=== PATIENT | male | born 1940 | race Caucasian/White ===

== ENCOUNTER 2024-11-19 09:26 | Emergency (ER) | payer MEDICARE, SELFPAY ==
--- OUTSIDE RECORDS SUMMARY | 2024-11-19 09:35 | XMS_ITS | Referral Summary ---
Author Organization [facility] [address] [facility] Address [address] [place] [address] Care Team Providers Care Potato Loader Name Role Phone Herbert Lin MD Primary Care Provider [phone] Encounters Date Type Department Care Team Description 11/09/2024 9:30 AM CDT Office Visit [facility] [address] [place] [address] Herbert Lin MD Type 2 diabetes mellitus with diabetic neuropathy, without long-term current use of insulin (HCC) (Primary Dx); Hypertension associated with diabetes (HCC); Type 2 diabetes mellitus with hyperlipidemia (HCC); Melanoma in situ of scalp (HCC); BMI 32.0-32.9,adult; Obesity (BMI 30.0-34.9); Encounter for Prevnar pneumococcal vaccination; Acute cough; Annual physical exam 11/04/2024 10:35 AM CDT Lab [facility] [address] [place] [address] Type 2 diabetes mellitus with diabetic neuropathy, without long-term current use of insulin (HCC) 10/12/2024 11:30 AM CDT Office Visit [facility] [address] [place] [address] Ave Ferrer NP Irritant contact dermatitis due to other agents (Primary Dx) from Last 3 Months Allergies No known active allergies Medications blood-glucose meter [facility] areac Use daily or as directed for monitoring of diabetes. Dx: E11.9 1 each 10/30/19 Active blood glucose diagnostic (glucose blood) strip Use to test blood sugar daily. Dx: E11.9 100 each 3 10/30/19 Active lancets misc Use to test blood sugar daily. Dx: E11.9 100 each 3 10/30/19 Active gabapentin (NEURONTIN) 300 mg capsule Take 1 capsule (300 mg total) by mouth nightly 90 capsule 3 05/13/20 Active metFORMIN (GLUCOPHAGE) 500 mg tablet TAKE 1 TABLET BY MOUTH TWICE A DAY WITH FOOD 180 tablet 1 05/16/20 24 Active atorvastatin (LIPITOR) 20 mg tablet TAKE 1 TABLET BY MOUTH EVERY DAY 90 tablet 4 08/09/19 25 Active triamcinolone (KENALOG) 0.5 % creamIndicatio ns:Irritant contact dermatitis due to other agents Apply topically 2 (two) times a day for 7 days 30 g 10/13/19 25 Active Additional Information Patient not taking.Reported on 11/09/2024 losartan (COZAAR) 100 mg tablet TAKE 1 TABLET BY MOUTH EVERY DAY 90 tablet 3 11/04/19 Active glipiZIDE (GLUCOTROL) 5 mg tabletIndicati ons:type 2 diabetes mellitus TAKE 1 TABLET (5 MG TOTAL) BY MOUTH 2 (TWO) TIMES A DAY BEFORE BREAKFAST AND LUNCH 180 tablet 1 11/04/19 25 Active amoxicillin-cl avulanate (AUGMENTIN) 875-125 mg per tablet Take 1 tablet by mouth 2 (two) times a day for 10 days 20 tablet 11/10/19 25 025 Active losartan (COZAAR) 100 mg tablet TAKE 1 TABLET BY MOUTH EVERY DAY 90 tablet 3 11/03/19 24 025 Discontinued glipiZIDE (GLUCOTROL) 5 mg tabletIndicati ons:type 2 diabetes mellitus TAKE 1 TABLET (5 MG TOTAL) BY MOUTH 2 (TWO) TIMES A DAY BEFORE BREAKFAST AND LUNCH 180 tablet 1 05/03/20 24 025 Discontinued varicella-zost er (SHINGRIX) 50 mcg/0.5 mL vaccine Inject 0.5 mL into the muscle as instructed once for 1 dose 0.5 mL 11/10/19 25 025 Active Problems Problem Noted Date Diagnosed Date BMI 32.0-32.9,adult 11/09/2024 Assessment & Plan (11/09/2024 10:16 AM CDT): Encourage 150min/week aerobic exercise. Healthy food choices. Acute cough 11/09/2024 Assessment & Plan (11/09/2024 10:16 AM CDT): Given duration of cough and increased rhonichi will treat empriically with augmentin given duration and will follow response. Encounter for Prevnar pneumococcal vaccination 0 11/09/2024 Assessment & Plan (11/09/2024 10:17 AM CDT): Updated pneumonia vaccination. Ordered shingrix and will follow response. Update zoster vaccination. Has had one episode in the past. No postherpetic neuralgias. Annual physical exam 11/09/2024 Assessment & Plan (11/09/2024 10:18 AM CDT): Focus of exam is preventative in nature. Reviewed immunizations, reviewed sun/skin cancer screening. Reviewed age and comorbid appropriate screenign recommendations and will follow response. Reivweed helathy food hcoices an dill montio rrepsonse. Update pneumonia and shingles vaccinations. BMI 33.0-33.9,adult 05/13/2024 Assessment & Plan (05/13/2024 8:14 AM CLINICAL LAB SCIENTIST): Encourage 150min/week aerobic exercise. Heatlhy food chocies and will monitor response. Obesity (BMI 30.0-34.9) 05/13/2024 Assessment & Plan (11/09/2024 10:15 AM CDT): Encourage healthy food choices and target 150min/week aerobic exercise. Will monitor response. Assessment & Plan (05/13/2024 8:14 AM CLINICAL LAB SCIENTIST): As above. Hypertension associated with diabetes 05/13/2024 Assessment & Plan (11/09/2024 10:16 AM CDT): Stable on losartan and continue on target blood pressure. Continue with renal protection related to use of ARB. Assessment & Plan (05/13/2024 8:14 AM CLINICAL LAB SCIENTIST): Stable on losartan 100mg daily. WIll follow response. Type 2 diabetes mellitus with hyperlipidemia Assessment & Plan (11/09/2024 10:16 AM CDT): Continues on atorvastatin and will follow response. No new myalgias/arthalgais and will continue to montior response. Assessment & Plan (05/13/2024 8:15 AM CLINICAL LAB SCIENTIST): Continue on atorvasetatin and will follow response. No new myalgias/arthalgais. Diabetic neuropathy, type II diabetes mellitus 0 11/06/2023 Assessment & Plan (11/09/2024 10:15 AM CDT): Continues on gabapentin to good effect. No new neuorpathy or intensifying of sypmtoms and will follow response. Assessment & Plan (05/13/2024 8:13 AM CLINICAL LAB SCIENTIST): Continues on gabapentin. WIll continue on 300mg nightly. Will resume after being off for an extended period of time. Upper respiratory tract infection 10/16/2022 Assessment & Plan (10/16/2022 1:59 PM CDT): Patient with symptoms for the past 3 days. Prescribed prednisone taper and instructed to use albuterol inhaler 2 puffs every 4-6 hours for the next few days. Patient will notify office in the next 2-3 days if symptoms have not improved or if he is experiencing any worsening symptoms. Will plan for chest x-ray. Encouraged him to rest, avoid mowing lawns while ill. Despite negative COVID testing patient is still stay home while sick. Stressed the need to drink plenty of fluids. Reviewed signs and symptoms warranting immediate evaluation. Melanoma in situ of scalp 10/06/2019 Assessment & Plan (11/09/2024 10:14 AM CDT): No new skin lesions. If any new lesions will need new derm referral as would be seekign second opinion. Assessment & Plan (05/13/2024 8:14 AM CLINICAL LAB SCIENTIST): Continue f/u with dermatology and will monitor response. No new skin lesions. Melanocytic nevus of skin 05/16/2016 Overview (08/22/2016): Encounter for surveillance of abnormal nevi Seborrheic keratosis 05/16/2016 Overview (08/22/2016): Seborrheic keratosis Tobacco use 05/16/2016 Overview (08/22/2016): Tobacco use Neuropathy 01/26/2015 Overview (08/22/2016): Neuropathy Hyperlipidemia 10/01/2013 Overview (08/21/2016): HYPERLIPIDEMIA NEC/NOS Hypertension 10/01/2013 Overview (08/21/2016): HYPERTENSION NOS Resolved Problems Problem Noted Date Diagnosed Date Resolved Date Severe obesity (BMI 35.0-39. 9) with comorbidity 10/01/2013 05/13/2024 Overview (08/21/2016): Obesity Immunizations Immunization Administration Dates Next Due Influenza, Trivalent, Preser vative Free, Intramuscular 03/18/2014 Influenza, Unspecified 05/05/2023(Deferr ed: Patient Refused),08/12/2022(Deferred: Patient Refused),05/18/2022(Deferred: Patient Refused),05/18/2021(Deferred: Patient Refused),05/18/2021(Deferred: Patient Refused),02/15/2019(Deferred: Patient Refused),02/23/2018(Deferred: Patient Refused),02/15/2018(Deferred: Patient Refused),05/19/2016(Deferred: Patient Refused) Pneumococcal Conjugate PCV 13 05/19/2018(Deferre d: Patient Refused) Pneumococcal Conjugate Pcv20 11/09/2024 Pneumococcal Polysaccharide PPV23 05/19/2018(Def erred: Patient Refused) Social History Tobacco Use Types Packs/Day Years Used Date Smoking Tobacco: Former Cigarettes Q uit: 2014 Smokeless Tobacco: Never Tobacco Cessation:Counseling Given: Not Answered Comments:Smoking History Packs/day: 2 Cigars Alcohol Use Standard Drinks/Week Comments Yes 0 (1 standard drink = 0.6 oz pur e alcohol) PHQ-2 Answer Date Recorded PHQ-2 Total Score (If total score is 3 or more points, staff should administer the PHQ-9) 0 11/09/2024 Sex and Gender Information Value Date Recorded Sex Assigned at Not on file Legal Sex Male 10:42 AM CLINICAL LAB SCIENTIST Gender Identity Not on file Sexual Orientation Not on file Last Filed Vital Signs Vital Sign Reading Time Taken Comments Blood Pressure 124/82 11/09/2024 9:27 AM CDT Pulse 85 11/09/2024 9:27 AM CDT Temperature 36.7 C (98.1 F) 11/09/2024 9:27 AM CDT Respiratory Rate 18 11/09/2024 9:27 AM CDT Oxygen Saturation 95% 11/09/2024 9:27 AM CDT room air Inhaled Oxygen Concentration - - Weight 113.4 kg (250 lb) 11/09/2024 9:27 AM CDT Height 185.4 cm (6' 1) 11/09/2024 9:27 AM CDT Body Mass Index 32.98 11/09/2024 9:27 AM CDT Plan of Treatment Not on file Procedures Procedure Name Priority Date/Time Associated Diagnosis Comments EGFR Routine 11/04/2024 10:33 AM CDT Type 2 diabetes mellitus with diabetic neuropathy, without long-term current use of insulin (HCC) DIFFERENTIAL AUTO Routine 11/04/2024 10: 33 AM CDT Type 2 diabetes mellitus with diabetic neuropathy, without long-term current use of insulin (HCC) LIPID PANEL Routine 11/04/2024 10:33 AM CDT Type 2 diabetes mellitus with diabetic neuropathy, without long-term current use of insulin (HCC) HEMOGLOBIN A1C Routine 11/04/2024 10:33 AM CDT Type 2 diabetes mellitus with diabetic neuropathy, without long-term current use of insulin (HCC) COMPREHENSIVE METABOLIC PANEL Routine 11/04/2024 10:33 AM CDT Type 2 diabetes mellitus with diabetic neuropathy, without long-term current use of insulin (HCC) CBC WITH AUTO DIFFERENTIAL Routine 11/04/2024 10:33 AM CDT Type 2 diabetes mellitus with diabetic neuropathy, without long-term current use of insulin (HCC) ALBUMIN CREATININE RATIO, URINE Routine 05/10/2024 8:22 AM CLINICAL LAB SCIENTIST Controlled type 2 diabetes mellitus without complication, without long-term current use of insulin (HCC) from Last 3 Months or Most Recently Relevant to Health Maintenance Results * eGFR (11/04/2024 10:33 AM CDT) eGFR 85 >=60 mL/min/1. 73 m2 Comment: Interpretive Data Reference Interval Normal >/= 90 mL/min/1.73m2 Mildly decreased* 60 - 89 mL/min/1.73m2 Mildly to moderately decreased 45 - 59 mL/min/1.73m2 Moderately to severely decreased 30 - 44 mL/min/1.73m2 Severely decreased 15 - 29 mL/min/1.73m2 Kidney Failure < 15 mL/min/1.73m2 *Relative to young adult level Estimated glomerular filtration rate is determined by the 2020 CKD-EPI equation recommended by the National Kidney Foundation (A Unifying Approach to GFR Estimation: Recommendations of the NKF-ASK Task Force on Reassessing the Inclusion of Race in Diagnosing Kidney Disease, JASN 2020). The CKD-EPI equation should not be used for patients with unstable renal function and has not been validated in children and those over 70. Current interpretive data was last reviewed 2021. Testing performed by: [facility], [address] [place] [address], [place]., [address] Blood 11/04/2024 10:3 3 AM CDT 11/04/2024 6:01 PM CDT us Herbetr Lin MD LAB BLOOD ORDERABLES Kelly fajardo Result [facility]) 1 [facility] [place] [address] * Differential, auto (11/04/2024 10:33 AM CDT) Neutrophil abs 4.01 1.50 - 6.50 K/cumm Comment:Testing performed by : [facility], [address] [place] [address]., [address] Imm gran abs 0.01 0.00 - 0.10 K/cumm [facility] Comment:Testing performed by : [facility], [address] [place] [address]., [address] Lymphocyte abs 1.33 0.80 - 3.30 K/cumm [facility] Comment:Testing performed by : [address], [address] Monocyte abs 0.43 0.20 - 0.80 K/cumm [facility]) Comment:Testing performed by : [address], [address] Eosinophil abs 0.21 0.00 - 0.50 K/cumm [facility]) Comment:Testing performed by : [facility], [address] [place] [address]., [address] Basophil abs 0.03 0.00 - 0.10 K/cumm [facility] Comment:Testing performed by : [address], [address] Neutrophil pct 66.6 % [facility] Comment: Interpretive Data Percent cell count reference ranges are not reported, since discordance with absolute values may lead to misinterpretation of CBC data. Current Interpretive Data was last revised on 2017. Testing performed by: [address] [address] Imm gran pct 0.2 % [facility] Comment: Interpretive Data Percent cell count reference ranges are not reported, since discordance with absolute values may lead to misinterpretation of CBC data. Current Interpretive Data was last revised on 2017. Testing performed by: [address], [address] Lymphocyte pct 22.1 % [facility] Comment: Interpretive Data Percent cell count reference ranges are not reported, since discordance with absolute values may lead to misinterpretation of CBC data. Current Interpretive Data was last revised on 2017. Testing performed by: [address] [address] Monocyte pct 7.1 % [facility] ([place]) Comment: Interpretive Data Percent cell count reference ranges are not reported, since discordance with absolute values may lead to misinterpretation of CBC data. Current Interpretive Data was last revised on 2017. Testing performed by: [facility], [address] [place] [address], [address] Eosinophil pct 3.5 % NILS R FAUSTINA ([place]) Comment: Interpretive Data Percent cell count reference ranges are not reported, since discordance with absolute values may lead to misinterpretation of CBC data. Current Interpretive Data was last revised on 2017. Testing performed by: [address], [address] Basophil pct 0.5 % [facility]) Comment: Interpretive Data Percent cell count reference ranges are not reported, since discordance with absolute values may lead to misinterpretation of CBC data. Current Interpretive Data was last revised on 2017. Testing performed by: [address], [address] Blood 11/04/2024 10:3 3 AM CDT 11/04/2024 5:52 PM CDT us Herbert Lin MD LAB BLOOD ORDERABLES Kelly l Result [facility] 1 [facility] [place] [address] * (ABNORMAL) CBC with auto differential (11/04/2024 10:33 AM CDT) WBC 6.02 3.80 - 9.90 K/cumm Comment:Testing performed by : [address], [address] Hgb 13.6 13.0 - 17.5 g/dL [facility] ([place]) Comment:Testing performed by : [address], [address] Hct 42.6 38.9 - 50.3 % [facility] Comment:Testing performed by : [address], [address] Plt 200 150 - 400 K/cumm [facility] ([place]) Comment:Testing performed by : [address], [address] MPV 10.4 9.1 - 12.3 fL [facility] ([place]) Comment:Testing performed by : [address], [address] RBC 4.75 4.30 - 5.80 M/cumm [facility] ([place]) Comment:Testing performed by : [address], [address] MCV 89.7 81.3 - 96.4 fL [facility] ([place]) Comment:Testing performed by : [address], [address] MCH 28.6 27.1 - 33.3 pg [facility]) Comment:Testing performed by : [address], [address] MCHC 31.9(L) 32.3 - 35.7 g/dL [facility] ([place]) Comment:Testing performed by : [address], [address] RDW CV 13.0 11.1 - 14.9 % [facility]) Comment:Testing performed by : [address], [address] RDW SD 43.0 35.7 - 48.1 fL [facility] ([place]) Comment:Testing performed by : [address], [address] NRBC abs 0.00 0.00 - 0.01 K/cumm [facility] ([place]) Comment:Testing performed by : [address], [address] Blood 11/04/2024 10:3 3 AM CDT 11/04/2024 5:52 PM CDT Herbert Lin MD LAB BLOOD ORDERABLES Kelly l Result [facility] [place]) 1 [place] [address] * (ABNORMAL) Hemoglobin A1c (11/04/2024 10:33 AM CDT) Hgb A1C 7.3(H) 4.0 - 5.6 % Comment:Testing performed by : [address] [address] Estimated Average Glucose 163 mg/dL [facility]) Comment: The ADA recommends reporting an estimated Average Glucose (eAG) with all Hemoglobin A1c results using the equation derived from a study of 507 normal and diabetic adults. Minority populations were underrepresented and children were not included. (Diabetes Care 31:8716-8063, 2008). The eAG is not equivalent to a fasting glucose. Testing performed by: [facility], [address] [place] [address]., [address] Blood 11/04/2024 10:3 3 AM CDT 11/04/2024 5:52 PM CDT Herbert Lin MD LAB BLOOD ORDERABLES Kelly l Result Performing Organization Address [facility] Co de Phone Number [facility] ([place]) 1 [facility] [place] [address] * (ABNORMAL) Lipid panel (11/04/2024 10:33 AM CDT) Cholesterol 128 30 - 199 mg/dL Comment: Interpretive Data Ages < or = 19 years Acceptable: <170 mg/dL Borderline high: 170-199 mg/dL High: >or= 200 mg/dL Ages > or = 20 years Desirable: <200 mg/dL Borderline high: 200-239 mg/dL High: >or= 240 mg/dL Literature References: 1. Expert Panel on Integrated Guidelines for Cardiovascular Health and Risk Reduction in Children and Adolescents. Pediatrics 2011;128:S213 2. NCEP Expert Panel. Circulation 2004;110:227 Current Interpretive Data was last revised on 2018. Testing performed by: [facility], [address] [place] [address]., [address] Triglycerides 102 <=149 mg/dL [facility] ([place]) Comment: Interpretive Data Ages < or = 9 years Acceptable: <75 mg/dL Borderline high: 75-99 mg/dL High: >or= 100 mg/dL Ages 10 to 20 years Acceptable: <90 mg/dL Borderline high: 90-129 mg/dL High: >or= 130 mg/dL Ages > or = 20 years Desirable: <150 mg/dL Borderline high: 150-199 mg/dL High: 200-499 mg/dL Very high: >or= 499 mg/dL Literature References: 1. Expert Panel on Integrated Guidelines for Cardiovascular Health and Risk Reduction in Children and Adolescents. Pediatrics 2011;128:S213 2. NCEP Expert Panel. Circulation 2004;110:227 Current Interpretive Data was last revised on 2018. Testing performed by: [facility], [address] [place] [address]., [address] HDL 36(L) >=40 mg/dL J[facility]UÉ Valentin ([place]) Comment: Interpretive Data Ages < or = 19 years Acceptable: >45 mg/dL Borderline low: 40-45 mg/dL Low: <40 mg/dL Ages > or = 20 years Desirable: >or= 60 mg/dL Low: <40 mg/dL Literature References: 1. Expert Panel on Integrated Guidelines for Cardiovascular Health and Risk Reduction in Children and Adolescents. Pediatrics 2011;128:S213 2. NCEP Expert Panel. Circulation 2004;110:227 Current Interpretive Data was last revised on 2018. Testing performed by: [facility], [address] [place] [address]., [address] LDL, calculated 73 <=129 mg/dL [facility] ([place]) Comment: Interpretive Data Ages < or = 19 years Acceptable: <110 mg/dL Borderline high: 110-129 mg/dL High: >or= 130 mg/dL Ages > or = 20 years Optimal: <100 mg/dL Near optimal: 100-129 mg/dL Borderline high: 130-159 mg/dL High: >160 mg/dL Calculated using the Kramer LDL-C estimating equation. This equation was implemented on 2024. Prior to this date LDL-C was estimated using the Friedewald equation. Literature References: 1. Expert Panel on Integrated Guidelines for Cardiovascular Health and Risk Reduction in Children and Adolescents. Pediatrics 2011;128:S213 2. NCEP Expert Panel. Circulation 2004;110:227 3. Williams Qureshi et al. EDILBERTO Cardiol. 2020 September 15;5(5):540-548. doi: 10.1001/[email or web address].2020.0013 Current Interpretive Data was last revised on 2024. Testing performed by: [address] [address] Non-HDL Cholesterol 92 mg/dL [facility] ([place]) Comment: Interpretive Data Ages < or = 19 years Acceptable: <120 mg/dL Borderline high: 120-144 mg/dL High: >145 mg/dL Ages > or = 20 years When triglycerides are >200 mg/dL, Non-HDL cholesterol is a secondary target of therapy with treatment goals that are 30 mg/dL greater than the LDL cholesterol target. Literature References: 1. Expert Panel on Integrated Guidelines for Cardiovascular Health and Risk Reduction in Children and Adolescents. Pediatrics 2011;128:S213 2. NCEP Expert Panel. Circulation 2004;110:227 Current Interpretive Data was last revised on 2018. Testing performed by: [address] [address] Chol/HDL ratio 4 [facility] ([place]) Comment:Testing performed by : [address] [address] Blood 11/04/2024 10:3 3 AM CDT 11/04/2024 5:52 PM CDT us Herbert Lin MD LAB BLOOD ORDERABLES Kelly fajardo Result [facility] ([place]) 1 [facility] Department [place] [address] * Comprehensive metabolic panel (11/04/2024 10:33 AM CDT) [facility] Signature Sodium 142 135 - 145 mmol/L Comment:Testing performed by : [address] [address] Potassium, pl 4.1 3.3 - 4.9 mmol/L [facility] ([place]) Comment:Testing performed by : [facility], [address] [place] [address]., [address] Chloride 107 97 - 110 mmol/L [facility] ([place]) Comment:Testing performed by : [address] [address] CO2 24 22 - 32 mmol/L [facility] ([place]) Comment:Testing performed by : [address] [address] Anion gap 11 2 - 15 mmol/L [facility] ([place]) Comment:Testing performed by : [address], [address] BUN 15 6 - 25 mg/dL [facility] ([place]) Comment:Testing performed by : [address], [address] Creatinine 0.90 0.80 - 1.30 mg/dL [facility] ([place]) Comment:Testing performed by : [address], [address] Glucose 174 70 - 199 mg/dL [facility] ([place]) Comment: Interpretive Data Fasting glucose >/= 126 mg/dl is diagnostic for diabetes. Fasting is defined as no caloric intake for at least 8 hours. Fasting glucose between 100 mg/dl to 125 mg/dl is diagnostic of prediabetes. In a patient with classic symptoms of hyperglycemia or hyperglycemic crisis, a random glucose >/= 200 mg/dl is diagnostic for diabetes. In the absence of unequivocal hyperglycemia, results should be confirmed by repeat testing. The classification and Diagnosis of Diabetes Diabetes Care 202; 46: S19-S40. Current interpretive data was last revised 2022. Testing performed by: [facility], [address] [place] [address]., [address] Calcium 9.0 8.5 - 10.3 mg/dL [facility] ([place]) Comment:Testing performed by : [address], [address] Bilirubin, total 0.7 0.1 - 1.2 mg/dL [facility] ([place]) Comment:Testing performed by : [address] [address] Protein, pl 6.6 6.5 - 8.5 g/dL [facility] ([place]) Comment:Testing performed by : [facility], [address] [place] [address]., [address] Albumin 3.9 3.5 - 5.0 g/dL [facility] ([place]) Comment:Testing performed by : [facility], [address] [place] [address]., [address] Alk phos 100 40 - 130 Units/L [facility] ([place]) Comment:Testing performed by : [facility], [address] [place] [address]., [address] ALT 20 7 - 55 Units/L [facility] ([place]) Comment:Testing performed by : [facility], [address] [place] [address], [address] AST 29 10 - 50 Units/L [facility] ([place]) Comment:Testing performed by : [address], [address] Blood 11/04/2024 10:3 3 AM CDT 11/04/2024 5:52 PM CDT us Herbert Lin MD LAB BLOOD ORDERABLES Kelly fajardo Result [facility]) 1 [facility] Department [place] [address] * Albumin Creatinine Ratio, Urine (05/10/2024 8:22 AM CLINICAL LAB SCIENTIST) Albumin Ur <12.0 mg/L Comment: Interpretive Data No reference range established. Current interpretive data was last revised 2018. Testing performed by: [facility], [address] [place] [address]., [address] Creatinine Ur 166.7 mg/dL [facility] ([place]) Comment: Interpretive Data No reference range established. Current interpretive data was last revised 2018. Testing performed by: [address] [address] Albumin Creatinine Ratio, Ur <7 1 - 29 mg/g [facility] ([place]) Comment:Testing performed by : [address] [place] [address] Urine 05/10/2024 8:22 AM CLINICAL LAB SCIENTIST 05/10/2024 12:20 PM CLINICAL LAB SCIENTIST us Herbert Lin MD LAB URINE ORDERABLES Kelly fajardo Result [facility] Department [place] [address] from Last 3 Months or Most Recently Relevant to Health Maintenance Insurance MEDICARE [facility] MEDICARE [facility] MEDICARE SUPPLEMENT Care Teams Potato Loader Relationship Specialty Start Date End Date Herbert Lin MD [place] [address] PCP - General Family Medicine 08/04/22
--- OUTSIDE RECORDS SUMMARY | 2024-11-19 09:35 | XMS_ITS | Encounter Summary ---
Author Organization [facility] Address [address] [place] [address] Care Team Providers Care Online Marketing Coordinator Name Role Phone Herbert Lin MD Primary Care Provider [phone] Encounter Details Date Type Department Care Team (Late st Contact Info) Description 08/26/2022 Lab Requisition [facility] [address] [place] [address] Bernard Finch MD [address] [place] [address] Social History Tobacco Use Types Packs/Day Years Used Date Smoking Tobacco: Former Cigarettes Q uit: 12/16/2010 Alcohol Use Standard Drinks/Week Comments Yes 8.3 (1 standard drink = 0.6 oz p ure alcohol) Sex and Gender Information Value Date Recorded Sex Assigned at Not on file 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 Gender Identity Not on file Sexual Orientation Not on file documented as of this encounter Plan of Treatment Not on file documented as of this encounter Procedures Procedure Name Priority Date/Time Associated Diagnosis Comments DERMATOPATHOLOGY Routine 08/25/2022 12:0 0 AM CDT documented in this encounter Results * DERMATOPATHOLOGY (08/25/2022 12:00 AM CDT) Case Report Dermatopathology Report Case: [id number] Authorizing Provider: Bernard iFnch MD Collected: 08/25/2022 12:00 AM Ordering Location: [facility] Received: 08/26/2022 12:51 PM Pathologist: Yasmeen Pitts MD Specimens: A) - Skin, right volar forearm B) - Skin, left proximal volar lateral forearm 3 2:15 PM CDT DERMATOPATHOLOGY LABORATORY Final Diagnosis Specimen A. 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 Dermatitis 2:15 PM CDT DERMATOPATHOLOGY LABORATORY Gross Description Specimen A: Received is one formalin filled container labeled with the patient's name and designated right volar forearm. The specimen consists of a shave biopsy measuring 11x8x1 mm. Jar 0. Specimen B: Received is one formalin filled container labeled with the patient's name and designated left proximal volar lateral forearm. The specimen consists of a shave biopsy measuring 9x7x2 mm. Jar 0. 2:15 PM CDT DERMATOPATHOLOGY LABORATORY Microscopic Description Specimen A. SKIN, right volar forearm: There are scattered dyskeratotic keratinocytes and vacuolar alteration along the basal cell layer. There is focal parakeratosis. In addition, an underlying band-like infiltrate composed of lymphocytes with scattered eosinophils focally obscures the dermal-epidermal junction. COMMENT: If this represents an isolated lesion, these histologic findings are consistent with a lichen planus-like keratosis (LPLK.) If this is part of a more diffuse process, these histologic findings are consistent with lichen planus, a lichenoid drug eruption or lichenoid contact dermatitis. Clinicopathologic correlation is recommended. Specimen B. SKIN, left proximal volar lateral forearm: There are scattered dyskeratotic keratinocytes and vacuolar alteration along the basal cell layer. There is focal parakeratosis. In addition, an underlying band-like infiltrate composed of lymphocytes with scattered eosinophils focally obscures the dermal-epidermal junction. COMMENT: If this represents an isolated lesion, these histologic findings are consistent with a lichen planus-like keratosis (LPLK.) If this is part of a more diffuse process, these histologic findings are consistent with lichen planus, a lichenoid drug eruption or lichenoid contact dermatitis. Clinicopathologic correlation is recommended. 3 2:15 PM CDT DERMATOPATHOLOGY LABORATORY Disclaimer An external and internal positive and negative controls are appropriate for the histochemical, immunohistochemical and immunofluorescence stain(s) in this case (if any), except where stated explicitly. The performance characteristics of the stain(s) cited in this report were developed and its performance characteristic determined by the Dermatopathology Laboratory at [facility], directed by Dr. Matt Muro. These tests need not be, and therefore are not, approved by the [place] Food and Drug Administration. The tests are used for clinical purposes. Billing Codes Specimen Charges Stain Charges 64045 99114 1 1 3 2:15 PM CDT DERMATOPATHOLOGY LABORATORY Embedded Images 3 2:15 PM CDT DERMATOPATHOLOGY LABORATORY Pathology/Cytology TISSUE SPECIMEN FROM SKIN / Unknown 08/25/2022 08/26/2022 12:51 PM CDT Miscellaneous samples (specimen) TISSUE SPECIMEN FROM SKIN / Unknown 08/25/2022 08/26/2022 12:51 PM CDT Bernard Finch MD LAB - PATHOLOGY/CYTOLOGY ORD ERABLES Final Result DERMATOPATHOLOGY LABORATORY [facility] - Department of Dermatology [facility] Medicine [address] [place] [address], [address] [phone] documented in this encounter Visit Diagnoses Not on filedocumented in this encounter Care Teams Online Marketing Coordinator Relationship Specialty Start Date End [place] [address] PCP - General 05/04/08 documented as of this encounter
--- OUTSIDE RECORDS SUMMARY | 2024-11-19 09:35 | XMS_ITS | Clinical Summary ---
Author Organization [facility] Address [address] [place] [address] Care Team Providers Care Registered Vascular Technologist (Rvt) Name Role Phone Herbert Lin MD Primary Care Provider [phone] Source Comments [facility],non-owned Affiliates and Associated Physician Practices is amultiple site organization consisting of ambulatory clinics and hospital sitesin [place], [place], [place] and [place]. This disclosure is being madepursuant to the Care Everywhere program and may not contain all information available regarding this patient. 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 Gender Identity Not on file Sexual Orientation Not on file Last Filed Vital Signs Vital Sign Reading Time Taken Comments Blood Pressure 150/90 07/10/2016 2:20 PM SEWING DEMONSTRATOR Pulse 75 07/10/2016 2:20 PM SEWING DEMONSTRATOR Temperature - - Respiratory Rate - - Oxygen Saturation 97% 07/10/2016 2:20 PM SEWING DEMONSTRATOR Inhaled Oxygen Concentration - - Weight 127 kg (280 lb) 07/10/2016 12:35 PM SEWING DEMONSTRATOR Height 185.4 cm (6' 1) 07/10/2016 12:35 PM SEWING DEMONSTRATOR Body Mass Index 36.94 07/10/2016 12:35 PM SEWING DEMONSTRATOR Plan of Treatment Health Maintenance Due Date Last Done Comments MEDICARE AWV 12 MONTHS 1942 DTAP/TDAP/TD VACCINES (1 - Tdap) 1961 PNEUMOCOCCAL VACCINE 50+ (1 of 1 - PCV) 1992 ZOSTER VACCINE (1 of 2) 1992 Respiratory Syncytial Virus (RSV) Vaccine Pt: or over 60 yrs (1 - 1-dose 75+ series) 2017 COVID-19 VACCINE (1 - 2023-2 5 season) 2024 DEPRESSION SCREENING 05/18/2024 INFLUENZA VACCINE (Season Ended) 2025 03/18/20 14 HEPATITIS B VACCINE Aged Out No longe r eligible based on patient's age to complete this topic HIB VACCINE Aged Out No longer eligi ble based on patient's age to complete this topic HPV VACCINE Aged Out No longer eligi ble based on patient's age to complete this topic MENINGOCOCCAL (Group B) VACC INE SHARED DECISION-MAKING Aged Out No longer eligibl e based on patient's age to complete this topic MENINGOCOCCAL GROUPS A/C/Y/W VACCINE Aged Out No longer eligible b ased on patient's age to complete this topic Insurance MEDICARE [facility], [facility] Care Teams Registered Vascular Technologist (Rvt) Relationship Specialty Start Date End [place] [address] PCP - General 05/04/08
--- OUTSIDE RECORDS SUMMARY | 2024-11-19 09:35 | XMS_ITS | Continuity of Care Document ---
Author Organization [facility] Address [address] [place] [address] Phone Care Team Providers Care Transportation Logistics Internship Name Role Phone Codey Alba MD Unavailable Unavailable Allergies, Adverse Reactions, Alerts Substance Reaction Status Criticality No Known Allergies Active No Inform ation Procedures Procedure Date After Cataract Laser Surgery No Charge Refraction No Charge Refraction After Cataract Laser Surgery Eye Exam, New Patient Eye Exam, New Patient Advance Directives Directive Yes / No Effective Date File Name No Information Encounters Encounter Description Practice Location Reason(s) For Visit Diagnoses Date Provider Providers Copied on Encounter [facility], [address] [place] [address] [address], [place], [place], [id number], [place] tel:[phone] [place] Katrinh Yag PO OD (chief complaint) Other secondary cataract, left eyePseudophaki a of left eye 4-201 6 Parth Alegre. [address] [facility], [address], [place], [place], [id number], [place]. tel:[phone] [facility], [address] [place] [address] [address], [place], [place], [id number], [place] tel:[phone] [place] Professional blurry vision (chief complaint) Pseudophakia of both eyesOther secondary cataract, right eyeOther secondary cataract, left eye 9-201 6 Parth Alegre. [address] [facility], [address], [place], [place], [id number], [place]. tel:[phone] Specialist : Ranjit Luque OD, [address] [facility], [place], [address]. tel:[phone] [facility], [address], [place], [place], [id number], [place] tel:[phone] [facility] Professional No Information 1 Rebeka Kenny. [address] [facility], [facility] [address], [place], [place], [id number], [place]. tel:[phone] Referring Provider: Efraín Conde [address] [facility] [address], [place], [address] . tel:[phone] Family History Family Member Type Diagnosis Age At Onset Mother Problem (finding) diabetes mellitus type 2 Payers Payer name Insurance type Covered libertarian ID Authoriza tion(s) [place] [id number] [facility] [id number] Social History Type Description Quantity Date Captured Comments Alcohol Use Details Caffeine Use Details Tobacco Use Status No Information Smoking Status Never smoker Non-Smoking Tobacco Use Details : No Details Available : No Details Available Sex Male Chief Complaint And Reason For Visit From encounter dated '08/09/2015 09:30'. Yag PO OD (chief complaint). Description: The 75 year old male presents for evaluation of Yag PO ODand Yag procedure in Os. Pt. states that vision is doing great since having laser done in his OD and is more than ready for OS to be done. pt. denies any pain or discomfort at this time. pt. is not currently using any type of eye drops at this time. Pt. will wait to a have a full and final Rx at the time of his 2-4 week PO on his OS. Reason For Referral Reason For Referral No Information History Of Present Illness Encounter Date Complaint History Of Prese nt Illness Yag PO OD The 75 year old male presents for evaluation of Yag PO OD and Yag procedure in Os. Pt. states that vision is doing great since having laser done in his OD and is more than ready for OS to be done. pt. denies any pain or discomfort at this time. pt. is not currently using any type of eye drops at this time. Pt. will wait to a have a full and final Rx at the time of his 2-4 week PO on his OS. blurry vision The 75 year old male presents for evaluation of YAG PC OU. Patient c/o greyish vision and cloudy vision ou. Patient states he is monovision. Functional Status Date Functional Assessmen t No Information Instructions Date Instruction Additional Infor leatha Impression/Plan - Vi jose has improved OD s/p Yag Laser Capsulotomy. 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 Diagnosis discussed in detail. Yag Laser treatment, risks and benefits explained and understood by patient. Advised patient to call with new onset of floaters, flashes of light or a veil covering part of the vision. Patient elects to proceed with Yag Laser Capsulotomy OS today. Consent was obtained. Patient to return in 2-4 weeks for Yag PO OS. Follow up - 2-4 week Yag Cap OS PO Impression/Plan - Po sterior Capsular Opacification OU accounts for patient's complaints. Diagnosis discussed in detail. Yag Laser treatment, risks and benefits explained and understood by patient. Advised patient to call with new onset of floaters, flashes of light or a veil covering part of the vision. Patient elects to proceed with Yag Laser Capsulotomy OD today. Consent was obtained. Patient to return in 1-2 weeks for Yag PO OD and to have Yag Capsulotomy OS. Letter sent to Dr. Luque. Follow up - Return t o clinic in 1-2 weeks for Yag Cap PO OD and Yag Laser Cap OS Assessments Type Assessment Date assessment Other secondary cataract, left e ye assessment Pseudophakia of left eye 2015 Patient Care Teams Name Effective Dates (start - stop) Status Members No Information
--- OUTSIDE RECORDS SUMMARY | 2024-11-19 09:35 | XMS_ITS | Clinical Summary ---
Author Organization [facility] [address] [facility] lto Address [address] [place] [address] Care Team Providers Care Ostomy Care Nurse Name Role Phone Herbert Lin MD Primary Care Provider [phone] Allergies No known active allergies Medications blood-glucose meter misc Use daily or as directed for monitoring of diabetes. Dx: E11.9 1 each 10/30/19 Active blood glucose diagnostic (glucose blood) strip Use to test blood sugar daily. Dx: E11.9 100 each 3 10/30/19 23 Active lancets misc Use to test blood sugar daily. Dx: E11.9 100 each 3 10/30/19 23 Active gabapentin (NEURONTIN) 300 mg capsule Take 1 capsule (300 mg total) by mouth nightly 90 capsule 3 05/13/20 24 Active metFORMIN (GLUCOPHAGE) 500 mg tablet TAKE [...] MOUTH EVERY DAY 90 tablet 3 11/04/19 25 Active glipiZIDE (GLUCOTROL) 5 mg tabletIndicati ons:type [...] 05/13/2024 Assessment & Plan (05/13/2024 8:14 AM SPA ASSISTANT MANAGER): Encourage 150min/week aerobic exercise. Heatlhy food chocies and will monitor response. Obesity (BMI 30.0-34.9) 05/13/2024 Assessment & Plan (11/09/2024 10:15 AM CDT): Encourage healthy food choices and target 150min/week aerobic exercise. Will monitor response. Assessment & Plan (05/13/2024 8:14 AM SPA ASSISTANT MANAGER): As above. Hypertension associated with diabetes 05/13/2024 Assessment & Plan (11/09/2024 10:16 AM CDT): Stable on losartan and continue on target blood pressure. Continue with renal protection related to use of ARB. Assessment & Plan (05/13/2024 8:14 AM SPA ASSISTANT MANAGER): Stable on losartan 100mg daily. WIll follow response. Type 2 diabetes mellitus with hyperlipidemia Assessment & Plan (11/09/2024 10:16 AM CDT): Continues on atorvastatin and will follow response. No new myalgias/arthalgais and will continue to montior response. Assessment & Plan (05/13/2024 8:15 AM SPA ASSISTANT MANAGER): Continue on atorvasetatin and will follow response. No new myalgias/arthalgais. Diabetic neuropathy, type II diabetes mellitus 0 11/06/2023 Assessment & Plan (11/09/2024 10:15 AM CDT): Continues on gabapentin to good effect. No new neuorpathy or intensifying of sypmtoms and will follow response. Assessment & Plan (05/13/2024 8:13 AM SPA ASSISTANT MANAGER): Continues on gabapentin. WIll continue on 300mg [...] opinion. Assessment & Plan (05/13/2024 8:14 AM SPA ASSISTANT MANAGER): Continue f/u with dermatology and will monitor [...] with comorbidity 10/01/2013 05/13/2024 Overview (08/21/2016): Obesity Encounters Date Type Department Care Team Description 11/09/2024 9:30 AM CDT [facility] Visit [facility] [address] [address] Herbert Lin MD Type 2 diabetes mellitus with diabetic neuropathy, without long-term current use of insulin (HCC) (Primary Dx); Hypertension associated with diabetes (HCC); Type 2 diabetes mellitus with hyperlipidemia (HCC); Melanoma in situ of scalp (HCC); BMI 32.0-32.9,adult; Obesity (BMI 30.0-34.9); Encounter for Prevnar pneumococcal vaccination; Acute cough; Annual physical exam 11/04/2024 10:35 AM CDT Lab [facility] [address] [place] [id number] Type 2 diabetes mellitus with diabetic neuropathy, without long-term current use of insulin (HCC) 10/12/2024 11:30 AM CDT Office Visit [facility] Care at [address] [place] [id number] Ave Ferrer NP Irritant contact dermatitis due to other agents (Primary Dx) from Last 3 Months Immunizations Immunization Administration Dates Next Due Influenza, Trivalent, Preser vative Free, Intramuscular 03/18/2014 Influenza, Unspecified 05/05/2023(Deferr ed: Patient Refused),08/12/2022(Deferred: Patient Refused),05/18/2022(Deferred: Patient Refused),05/18/2021(Deferred: Patient Refused),05/18/2021(Deferred: Patient Refused),02/15/2019(Deferred: Patient Refused),02/23/2018(Deferred: Patient Refused),02/15/2018(Deferred: Patient Refused),05/19/2016(Deferred: Patient Refused) Pneumococcal Conjugate PCV 13 05/19/2018(Deferre d: Patient Refused) Pneumococcal Conjugate Pcv20 11/09/2024 Pneumococcal Polysaccharide PPV23 05/19/2018(Def erred: Patient Refused) Surgical History Surgery Date Site/Laterality Comments APPENDECTOMY 05/18/1952 - 05/17/1953 TONSILECTOMY, ADENOIDECTOMY, BILATERAL MYRINGOTOMY AND TUBES 05/18/1952 - 05/17/1953 Medical History Medical History Date Comments Melanoma (HCC) right side of fa ce Family History Medical History Relation Name Comments Other Brother 2 Healthy; Other Father parotid cancer; Cancer Son lung Relation Name Status Comments Brother 1 Alive Brother 2 Father Alive Son (Age 48) Social History Tobacco Use Types Packs/Day Years [...] on file Legal Sex Male 10:42 AM SPA ASSISTANT MANAGER Gender Identity Not on file Sexual Orientation Not on file Obstetrics History Last Filed Vital Signs Vital Sign Reading [...] 11/09/2024 9:27 AM CDT Plan of Treatment Health Maintenance Due Date Last Done Comments DTaP/Tdap/Td Vaccine (1 - Tdap) 1951 Hepatitis B Screening 1960 Zoster Vaccine (1 of 2) 1992 Abdominal Aortic Aneurysm (A AA) Screen 2007 Foot Exam 10/17/2023 10/16/2022, 06/17/2017 Covid-19 Vaccine (2023-2 5 season) 2024 04/25/2021, 10/10/2020, 09/11/2020 Influenza Vaccine (#1) 2025 03/18/2014 Hemoglobin A1C 05/06/2025 11/04/2024, 04/18, 05/04/2023, Additional history exists Albumin Creatinine Ratio, Urine 05/10/2025 , 10/27/2022 Lipid Panel 11/04/2025 11/04/2024, 04/18, 05/04/2023, Additional history exists eGFR 11/04/2025 11/04/2024, 04/18, 05/04/2023, Additional history exists Depression Screening 11/09/2025 11/09/2024, 05/13/2024, 11/06/2023, Additional history exists Fall Risk Assessment 11/09/2025 11/09/2024, 05/13/2024, 11/06/2023, Additional history exists Well Visit 65+ 11/09/2025 11/09/2024, 10/17, 08/12/2022, Additional history exists Pneumococcal vaccine 65+ Completed 11/09/2024 Dilated Eye Exam Discontinued Procedures Procedure Name Priority Date/Time Associated Diagnosis [...] CREATININE RATIO, URINE Routine 05/10/2024 8:22 AM SPA ASSISTANT MANAGER Controlled type 2 diabetes mellitus without complication, [...] was last reviewed 2021. Testing performed by: [facility] [place], [address] [place] [address], [place]., [address] Blood 11/04/2024 10:3 3 AM CDT 11/04/2024 6:01 PM CDT us Herbert Lin MD LAB BLOOD ORDERABLES Kelly fajardo Result [facility] [place] [address] [facility] Department [place] [address] * Differential, auto (11/04/2024 10:33 AM CDT) Neutrophil abs 4.01 1.50 - 6.50 K/cumm Comment:Testing performed by : [facility] [place], [address] [place] [address]., [address] Imm gran abs 0.01 0.00 - 0.10 K/cumm [facility] ([place]) Comment:Testing performed by : [facility] [place], [address] [place] [address], [address] Lymphocyte abs 1.33 0.80 - 3.30 K/cumm [facility] ([place]) Comment:Testing performed by : [facility] [place], [address] [place] [address], [address] Monocyte abs 0.43 0.20 - 0.80 K/cumm [facility] ([place]) Comment:Testing performed by : [facility] [place], [address] [place] [address], [address] Eosinophil abs 0.21 0.00 - 0.50 K/cumm [facility] ([place]) Comment:Testing performed by : [facility] [place], [address] [place] [address], [address] Basophil abs 0.03 0.00 - 0.10 K/cumm [facility] ([place]) Comment:Testing performed by : [address], [address] Neutrophil pct 66.6 % [facility] ([place]) Comment: Interpretive Data Percent cell count reference ranges are not reported, since discordance with absolute values may lead to misinterpretation of CBC data. Current Interpretive Data was last revised on 2017. Testing performed by: [address] [address] Imm gran pct 0.2 % [facility] ([place]) Comment: Interpretive Data Percent cell count reference ranges are not reported, since discordance with absolute values may lead to misinterpretation of CBC data. Current Interpretive Data was last revised on 2017. Testing performed by: [address], [address] Lymphocyte pct 22.1 % [facility] ([place]) Comment: Interpretive Data Percent cell count reference ranges are not reported, since discordance with absolute values may lead to misinterpretation of CBC data. Current Interpretive Data was last revised on 2017. Testing performed by: [facility] [place], [address] [place] [address]., [address] Monocyte pct 7.1 % [facility] ([place]) Comment: Interpretive Data Percent cell count reference ranges are not reported, since discordance with absolute values may lead to misinterpretation of CBC data. Current Interpretive Data was last revised on 2017. Testing performed by: [facility] [place], [address] [place] [address]., [address] Eosinophil pct 3.5 % [facility] ([place]) Comment: Interpretive Data Percent cell count reference ranges are not reported, since discordance with absolute values may lead to misinterpretation of CBC data. Current Interpretive Data was last revised on 2017. Testing performed by: [facility] [place], [address] [place] [address]., [address] Basophil pct 0.5 % [facility] ([place]) Comment: Interpretive Data Percent cell count reference ranges are not reported, since discordance with absolute values may lead to misinterpretation of CBC data. Current Interpretive Data was last revised on 2017. Testing performed by: [address] [address] Blood 11/04/2024 10:3 3 AM CDT 11/04/2024 5:52 PM CDT us Herbert Lin MD LAB BLOOD ORDERABLES Kelly l Result [facility] ([place]) 1 [facility] Department [place] [address] * (ABNORMAL) CBC with auto differential (11/04/2024 10:33 AM CDT) WBC 6.02 3.80 - 9.90 K/cumm Comment:Testing performed by : [address] [address] Hgb 13.6 13.0 - 17.5 g/dL [facility] ([place]) Comment:Testing performed by : [address], [address] Hct 42.6 38.9 - 50.3 % [facility] ([place]) Comment:Testing performed by : [facility], [address] [place] [address], [address] Plt 200 150 - 400 K/cumm [facility] ([place]) Comment:Testing performed by : [address], [address] MPV 10.4 9.1 - 12.3 fL [facility] ([place]) Comment:Testing performed by : [address], [address] RBC 4.75 4.30 - 5.80 M/cumm [facility] ([place]) Comment:Testing performed by : [address], [address] MCV 89.7 81.3 - 96.4 fL [facility] ([place]) Comment:Testing performed by : [address], [address] MCH 28.6 27.1 - 33.3 pg [facility] ([place]) Comment:Testing performed by : [address], [address] MCHC 31.9(L) 32.3 - 35.7 g/dL [facility] ([place]) Comment:Testing performed by : [address], [address] RDW CV 13.0 11.1 - 14.9 % [facility] ([place]) Comment:Testing performed by : [address], [address] RDW SD 43.0 35.7 - 48.1 fL [facility] ([place]) Comment:Testing performed by : [address], [address] NRBC abs 0.00 0.00 - 0.01 K/cumm [facility] ([place]) Comment:Testing performed by : [address], [address] Blood 11/04/2024 10:3 3 AM CDT 11/04/2024 5:52 PM CDT Herbert Lin MD LAB BLOOD ORDERABLES Kelly l Result [facility] ([place]) 1 [facility] [place] [address] * (ABNORMAL) Hemoglobin A1c (11/04/2024 10:33 AM CDT) Hgb A1C 7.3(H) 4.0 - 5.6 % Comment:Testing performed by : [address] [address] Estimated Average Glucose 163 mg/dL [facility] ([place]) Comment: The ADA recommends reporting an estimated Average Glucose (eAG) with all Hemoglobin A1c results using the equation derived from a study of 507 normal and diabetic adults. Minority populations were underrepresented and children were not included. (Diabetes Care 31:5729-1336, 2008). The eAG is not equivalent to a fasting glucose. Testing performed by: [address] [address] Blood 11/04/2024 10:3 3 AM CDT 11/04/2024 5:52 PM CDT Herbert Lin MD LAB BLOOD ORDERABLES Kelly l Result Performing Organization Address City/[facility]/ZIP Co de Phone Number [facility] ([place]) 1 [facility] [place] [address] * (ABNORMAL) Lipid panel (11/04/2024 10:33 AM [...] last revised on 2018. Testing performed by: [address] [place]., [address] Triglycerides 102 <=149 mg/dL [facility] ([place]) [...] last revised on 2018. Testing performed by: [address] [address] HDL 36(L) >=40 mg/dL [facility] Valentin ([place]) [...] last revised on 2018. Testing performed by: [facility], [address] [place] [address]., [address] LDL, calculated 73 <=129 mg/dL [facility] [...] NCEP Expert Panel. Circulation 2004;110:227 3. Williams M et al. EDILBERTO Cardiol. 2020 September 15;5(5):540-548. doi: 10.1001/jamacardio.2020.0013 Current Interpretive Data was last revised on 2024. Testing performed by: [facility], [address] [place] [address]., [address] Non-HDL Cholesterol 92 mg/dL [facility] ([place]) [...] last revised on 2018. Testing performed by: [facility], [address] [place] [address]., [address] Chol/HDL ratio 4 NILS WE[facility]S ([place]) Comment:Testing performed by : [facility] [place], [address] [place] [address]., [address] Blood 11/04/2024 10:3 3 AM CDT 11/04/2024 5:52 PM CDT us Herbert Lin MD LAB BLOOD ORDERABLES Kelly l Result [facility] ([place]) 1 [facility] Department [place] [address] * Comprehensive metabolic panel (11/04/2024 10:33 AM CDT) Sodium 142 135 - 145 mmol/L Comment:Testing performed by : [address] [address] Potassium, pl 4.1 3.3 - 4.9 mmol/L [facility] ([place]) Comment:Testing performed by : [facility] [place], [address] [place] [address]., [address] Chloride 107 97 - 110 mmol/L [facility] ([place]) Comment:Testing performed by : [facility], [address] [place] [address]., [address] CO2 24 22 - 32 mmol/L [facility] ([place]) Comment:Testing performed by : [address], [address] Anion gap 11 2 - 15 mmol/L [facility] ([place]) Comment:Testing performed by : [address], [address] BUN 15 6 - 25 mg/dL [facility] ([place]) Comment:Testing performed by : [address], [address] Creatinine 0.90 0.80 - 1.30 mg/dL [facility] ([place]) Comment:Testing performed by : [address], [address] Glucose 174 70 - 199 mg/dL [facility] [...] was last revised 2022. Testing performed by: [address] [address] Calcium 9.0 8.5 - 10.3 mg/dL [facility] ([place]) Comment:Testing performed by : [address] [address] Bilirubin, total 0.7 0.1 - 1.2 mg/dL [facility] ([place]) Comment:Testing performed by : [address], [address] Protein, pl 6.6 6.5 - 8.5 g/dL [facility] ([place]) Comment:Testing performed by : [facility] [place], [address] [place] [address]., [address] Albumin 3.9 3.5 - 5.0 g/dL [facility] ([place]) Comment:Testing performed by : [facility] [place], [address] [place] [address]., [address] Alk phos 100 40 - 130 Units/L [facility] ([place]) Comment:Testing performed by : [facility] [place], [address] [place] [address]., [address] ALT 20 7 - 55 Units/L [facility] ([place]) Comment:Testing performed by : [facility] [place], [address] [place] [address], [address] AST 29 10 - 50 Units/L [facility] ([place]) Comment:Testing performed by : [facility] [place], [address] [place] [address], [address] Blood 11/04/2024 10:3 3 AM CDT 11/04/2024 5:52 PM CDT us Herbert Lin MD LAB BLOOD ORDERABLES Kelly l Result [facility] ([place]) 1 [facility] Department [place] [address] * Albumin Creatinine Ratio, Urine (05/10/2024 8:22 AM SPA ASSISTANT MANAGER) Albumin Ur <12.0 mg/L Comment: Interpretive Data No reference range established. Current interpretive data was last revised 2018. Testing performed by: [facility] [place], [address] [place] [address]., [address] Creatinine Ur 166.7 mg/dL [facility] ([place]) Comment: Interpretive Data No reference range established. Current interpretive data was last revised 2018. Testing performed by: [address] [address] Albumin Creatinine Ratio, Ur <7 1 - 29 mg/g [facility] ([place]) Comment:Testing performed by : [address], [address] Urine 05/10/2024 8:22 AM SPA ASSISTANT MANAGER 05/10/2024 12:20 PM SPA ASSISTANT MANAGER us Herbert Lin MD LAB URINE ORDERABLES Kelly fajardo Result [facility] ([place]) 1 [facility] Department [place] [address] from Last 3 Months or Most Recently Relevant to Health Maintenance Insurance MEDICARE [facility] MEDICARE [facility] MEDICARE SUPPLEMENT Care Teams Ostomy Care Nurse Relationship Specialty Start Date End Date Herbert Lin MD [address] [address] PCP - General Family Medicine 08/04/22
--- NOTE | 2024-11-19 09:44 | ED_ITS ---
HPI - URI/Sore Throat General Chief Complaint: Upper Respiratory Infection Stated Complaint: Cough Time Seen by Provider: 11/19/24 09:33 patient presents to [facility] accompanied by family with complaints of continued nasal congestion, pain cough, nasal drainage, headache, dizziness, fatigue, hot/cold chills, and chest congestion along the left lower side that began about 3 weeks ago. Patient noted he had been using Mucinex and other [id number] cough cold medications without relief of symptoms saw his primary care physician was given Augmentin for 10 days which he took as directed and did not get any relief from these. Denies fever, dizziness, shortness of breath, nausea, vomiting, diarrhea, or sore throat. Related Data Home Medications ?Medication ?Instructions ?Recorded ?Confirmed ?Last Taken ?Type amoxicillin 875 mg-potassium tablet 11/19/24 Unknown History clavulanate 125 mg tablet atorvastatin 20 mg tablet mg 11/19/24 Unknown History glipizide 5 mg tablet mg 11/19/24 Unknown History losartan 100 mg tablet mg 11/19/24 Unknown History Allergies Allergy/AdvReac Type Severity Reaction Status Date / Time No Known Allergies Allergy Verified 11/19/24 09:53 Review of Systems Constitutional: Constitutional: Reports no additional constitutional complaints, Reports chills, Reports fatigue, Denies fever(s) and Denies weakness Eyes: Eyes: Reports no additional eye complaints ENT: Reports as per HPI, Denies dysphagia, Denies vertigo, Denies dizziness, Denies epistaxis, Reports nasal congestion and Denies sore throat Comments: Nasal drainage, sinus pain, Cardiovascular: Cardiovascular: Reports no additional cardiovascular complaints Respiratory: Respiratory: Reports as per HPI, Reports chest congestion, Reports cough, Denies dyspnea and Reports wheezing Gastrointestinal: Gastrointestinal: Reports no additional gastrointestinal complaints Genitourinary: Genitourinary: Reports no additional male genitourinary complaints Musculoskeletal: Musculoskeletal: Reports no additional musculoskeletal complaints Integumentary/Breasts: Skin/Breast: Reports as per HPI, Denies erythema and Denies rash Neurologic: Reports as per HPI, Denies vertigo, Denies dizziness, Reports headache(s), Denies focal weakness, Denies numbness and Denies weakness Psychiatric: Psychiatric: Reports no additional psychiatric complaints Endocrine: Endocrine: Reports no additional endocrine complaints Hematologic/Lymphatic: Hematologic/Lymphatic: Reports no additional hematologic/lymphatic complaints Allergic/Immunologic: Allergic/Immunologic: Reports as per HPI, Denies lip swelling, Denies throat swelling, Denies tongue swelling and Reports wheezing Exam Const: General: healthy appearing and no acute distress Nutritional Appearance: well nourished Orientation/consciousness: patient oriented x3 Limitations: no limitations HENMT: Head: normal to inspection Ears: external ears normal and TM's abnormal bilaterally ( dullness with minimal erythema bilaterally) Face/Nose/Sinus: Normal external nose present, nares abnormal ( moderate erythema and edema noted bilaterally) and Nasal discharge present ( thick, green) Face and sinus: normal facial exam and sinus tenderness ( bilateral) maxillary Mouth: Yes Normal oral and palatal mucosa present and Yes moist mu cous membranes Throat: posterior oropharynx abnormal ( minimal erythema with no edema or exudate noted) Neck: Neck: normal visual inspection and no lymphadenopathy Chest: Chest palpation & inspection: normal inspection of the chest Resp: Effort & Inspection: normal respiratory effort Auscultation: wheezes left lower and diminished lung sounds diffuse Other: harsh cough noted Cardio: Rate: regular rate Rhythm: regular rhythm Skin: General skin exam: normal color Rashes: no rashes Wounds: no wounds Neuro: General: patient oriented x3 Speech: normal speech Gait exam (Neuro): Normal gait present Extrem: General: normal to inspection, no clubbing, cyanosis or edema and no pedal edema Psych: Mental Status: mental status grossly normal Affect: normal affect Attitude: cooperative Course Course Level of Care: Express Care Visit MDM - URI/Sore Throat MDM Narrative Medical decision making narrative: recent antibiotic use of Augmentin. Given continued symptoms will use doxycycline and Medrol with albuterol and cough medication as needed Discharge instructions reviewed with patient, as well as provided in writing per nursing staff. The instructions also include specific and strict return/GO TO THE ER as well as f/u information. All questions have been answered, and the patient deny any further questions with discharge and discharge plan. Differential Diagnosis Differential diagnosis: Likely upper respiratory infection, otitis media, sinusitis, viral infection, bronchitis, influenza and pharyngitis Medical Records Attestation: I reviewed the patient's medical records. Discharge Plan Discharge Clinical Impression: Sinusitis, Bronchitis Patient Disposition: Home Condition: Stable Instructions: Antibiotic Form, Sinusitis (ED), How to Use a Metered-Dose Inhaler (ED), Acute Bronchitis (ED), Warm Compress or Soak (ED) Additional Instructions: Return to urgent care or go to the ER for new or worsening symptoms. Continue to take Tylenol or Motrin for pain. Use a humidifier or vaporizer at night. Take Medications as prescribed. Drink plenty of water. 8-10 glasses per day. Use flonase 2 times per day for 5 days then as needed Take mucinex 2 times per day and be sure to take with 8oz of water. Follow up with Primary provider if not getting better. Return to Express Care or go to the ER for new or worsening symptoms. Take the full dose of steroids as directed to decrease inflammation and open up sinus and airway Increase water intake to 8-10 glasses per day Patient Language: Tajik Prescriptions: New doxycycline monohydrate 100 mg capsule 100 mg PO BID Qty: 20 0RF methylprednisolone [Medrol (Alvarado)] 4 mg tablets,dose pack See Rx Instructions .ROUTE .COMPLEX Qty: 21 0RF Rx Instructions: for 6 days albuterol sulfate [Ventolin HFA] 90 mcg/actuation HFA aerosol inhaler 2 puff inhalation QID PRN (Reason: shortness of breath or wheezing) Qty: 6.7 0RF benzonatate 200 mg capsule 200 mg PO TID PRN (Reason: cough) Qty: 30 0RF No Action atorvastatin 20 mg tablet losartan 100 mg tablet glipizide 5 mg tablet amoxicillin-pot clavulanate 875-125 mg tablet Follow-up/Referrals: Harms,Herbert Acevedo M.D. [Primary Care Provider] - Time of Disposition: 10:06
[2024-11-19 09:47] VITALS: BP 130/74; PULSE 92; RESP 20; TEMP 37.5; O2SAT 96
== END 2024-11-19 10:08 | disposition home or self-care (01) ==
PROVIDERS: Emergency Provider Nurse Practitioner Family; PCP Family Medicine
DX: J32.9 Chronic sinusitis, unspecified (principal); J40 Bronchitis, not specified as acute or chronic
CPT/HCPCS: 99203; G0463